=== PATIENT | male | born 1990 | race Caucasian/White ===

== ENCOUNTER 2017-08-17 19:13 | Emergency (ER) | payer MEDICAID ==
[~2017-08-17] VITALS: Ht 175.3 cm; Wt 70.3 kg
[2017-08-17] MEDS ORDERED: KNEE STABILIZE1 EACH MC (19:59)
[2017-08-17] MEDS ORDERED: IBUPROFEN600 MG ORAL (19:59)
[2017-08-17 20:15] VITALS: BP 128/72
--- NOTE | 2017-08-17 20:38 | Emergency Room Report ---
History of Present Illness General Chief Complaint: Lower Extremity Injury Source: Patient Present Illness HPI The patient is a 27 old male presenting for knee pain. He states that he has had pain to both knees for the past 2 months. No known injury. He does admit to more physical activity and standing due to work. Pain is an 8/10 dull ache primarily to the left knee. Does not radiate. Worse with movement. He has tried 200 mg of Motrin which does help. He denies any other symptoms including rash, fever, numbness or tingling Allergies: Coded Allergies: No Known Allergies (Unverified , 08/17/17) Patient History Past Medical History: see triage record Pertinent Family History: none Reviewed Nursing Documentation: PMH: Agreed, PSxH: Agreed Nursing Documentation-PMH Hx Asthma: Yes Review of Systems All Other Systems: negative except mentioned in HPI Physical Exam Vital Signs Date Time Temp Pulse Resp B/P (MAP) Pulse Ox O2 Delivery O2 Flow Rate FiO2 08/17/17 19:18 98.1 91 18 128/72 98 Room Air Sp02 EP Interpretation: reviewed, normal General Appearance: no apparent distress, alert, GCS 15, non-toxic Head: normocephalic, atraumatic Eyes: bilateral eye normal inspection, bilateral eye PERRL ENT: hearing grossly normal, normal pharynx, no angioedema, normal voice Neck: full range of motion, supple/symm/no masses Musculoskeletal: back normal, gait/station normal, normal range of motion, non- tender, no calf tenderness Neurologic: alert, oriented x3, responsive, motor strength/tone normal, sensory intact, speech normal Psychiatric: judgement/insight normal, memory normal, mood/affect normal, no suicidal/homicidal ideation Skin: normal color, no rash, warm/dry, well hydrated Procedures Splinting Splinting : Consent: Verbal Location: L knee Pre-Made Type: RANJIT wrap Pre-Proc Neuro Vasc Exam: normal Post-Proc Neuro Vasc Exam: normal Patient Tolerated: Well Complications: None Medical Decision Making PA Attestation Dr. Jimenez is my supervising physician. Patient management was discussed with my supervising physician Diagnostic Impression: Primary Impression: Knee pain, bilateral Qualified Codes: M25.561 - Pain in right knee; M25.562 - Pain in left knee ER Course The patient is a 27 old male presenting for knee pain. Ddx considered include but not limited to sprain/strain, fracture, contusion, arthritis, among others PE: NAD Bilateral knees: No obvious deformity. No edema. No skin changes. Full active range of motion is intact. Normal gait. Nontender to palpation X-rays not needed at this time. Left knee Ranjit wrap is placed and the patient is given RICE instruction. He is given prescriptions for knee support and Motrin. He'll followup with his primary doctor. He was told that if pain continues or worsens he may need advanced imaging ER precautions given Last Vital Signs Date Time Temp Pulse Resp B/P (MAP) Pulse Ox O2 Delivery O2 Flow Rate FiO2 08/17/17 19:18 98.1 91 18 128/72 98 Room Air Status: improved Disposition: HOME, SELF-CARE Condition: Improved Scripts Leg Brace (KNEE STABILIZER) 1 Each Each EACH , #2 Prov: ORQUIDEA EVANS 08/17/17 Ibuprofen* (MOTRIN*) 600 Mg Tablet 600 MG ORAL Q8H Y for For Pain, #30 TAB 0 Refills Prov: ORQUIDEA EVANS 08/17/17 Patient Instructions: Knee Pain, RICE for Routine Care of Injuries Additional Instructions: I discussed my findings with the patient. All questions and concerns have been answered. Treatment and medication compliance have been addressed. I advised the patient that they need to follow up with PMD in 3-5 days. Return to ED if pain remains or worsens, numbness or tingling occurs, new rash is noticed, fever is noticed, or if needed for any reason. Patient verbalized understanding of discharge instructions. ORQUIDEA EVANS Aug 17, 2017 20:38
== END 2017-08-17 20:15 | disposition home or self-care (01) ==
LOC: EMR 19:48
DX: M25.562 Pain in left knee (principal); M25.561 Pain in right knee
CPT/HCPCS: 99283